=== PATIENT | male | born 1985 | race Caucasian/White ===

== ENCOUNTER 2021-08-26 02:02 | Emergency (ER) | payer OTHER, SELFPAY ==
[2021-08-26 02:12] VITALS: PULSE 111; RESP 12; TEMP 37.1; O2SAT 93; BMI 44.9
--- NOTE | 2021-08-26 02:14 | W.ED.GENADLT ---
HPI - General Adult General: Chief complaint: General Medical Stated complaint: Reasonable Suspision Time Seen by Provider: 08/26/21 02:06 Source: patient Mode of arrival: ambulatory Limitations: no limitations History of Present Illness: 35-year-old male is here from his workplace. This is a work comp case someone at stated they believe that smelled alcohol on his breath and he is here for alcohol test. He has no medical complaints he is consenting. Associated symptoms: Deny chest pain, dyspnea, headache(s), nausea, rash or vomiting Review of Systems Const: Denies: fever(s), chills, body aches or change in appetite Eyes: Denies: blurry vision or eye discomfort ENMT: Denies: throat pain or dental pain Card: Denies: chest pain Resp: Denies: dyspnea GI: Denies: abdominal pain, nausea, vomiting or diarrhea : Denies: dysuria Musc: Denies: neck pain or back pain Skin/Breast: Denies: rash Neuro: Denies: headache(s) Psych: Denies: depression Juan A/Lymph: Denies: easy bruising All/Imm: Denies: urticaria Physical Exam Const: COMMON NORMALS: no acute distress, average body habitus and patient oriented x3 HENMT: COMMON NORMALS: normocephalic and atraumatic HEAD & SCALP: normocephalic and atraumatic Eye: COMMON NORMALS: conjunctivae normal CONJUNCTIVA: Yes conjunctivae normal Neck/C-Spine: COMMON NORMALS: supple Chest: COMMONS NORMALS: normal inspection of the chest Resp: COMMON NORMALS: normal respiratory effort Cardio: COMMON NORMALS: regular rate and regular rhythm RATE: regular rate RHYTHM: regular rhythm GI: INSPECTION: Yes normal to inspection Extremity: COMMON NORMALS: normal to inspection Neuro: COMMON NORMALS: patient oriented x3 Psych: COMMON NORMALS: mental status grossly normal Skin: COMMON NORMALS: no rashes or lesions noted GENERAL SKIN EXAM: no rashes or lesions noted Course Vital Signs: Vital signs: Vital Signs Temperature 98.7 F 08/26/21 02:12 Pulse Rate 111 H 08/26/21 02:12 Respiratory Rate 12 08/26/21 02:12 Blood Pressure 165/122 08/26/21 02:17 Pulse Oximetry 93 08/26/21 02:12 [facility] - General Adult Medical Decision Making Patient presents here from work with questionable alcohol on his breath at work he brought him here for Workmen's Comp. Be contacted at home staging specialist as the workplace stated they only could get a breathalyzer and could not do a blood alcohol test due to DOT policy We do not have capabilities here to do breathalyzer is we spoke to his workplace he does want him discharged at this time with no testing Discharge Plan Discharge Patient Disposition: Home Clinical Impression: Encounter related to worker's compensation claim Condition: Stable Discharge Orders: Discharge ED (Routine); Ordered 08/26/21 Ordered By: Kristi Chong Discharge Diet: Advance as tolerated Discharge Activity: Resume usual activity Coding Level of Care Code ED Teacher Citizenship for [place] Fwd Exam Comprehensive
[2021-08-26 02:17] VITALS: BP 165/122
== END 2021-08-26 03:15 | disposition home or self-care (01) ==
PROVIDERS: Emergency Provider Emergency Medicine
DX: Z02.89 Encounter for other administrative examinations (principal)
CPT/HCPCS: 99281